=== PATIENT | male | born 1955 | race Two or more races ===

== ENCOUNTER 2024-06-24 10:11 | Emergency (ER) | payer OTHER ==
[~2024-06-24] VITALS: Ht 175.3 cm; Wt 80.7 kg
== END 2024-06-24 12:52 | disposition home or self-care (01) ==
LOC: ER 10:14
DX: S82.52XA Displaced fracture of medial malleolus of left tibia, initial encounter for closed fracture (principal); X50.9XXA Other and unspecified overexertion or strenuous movements or postures, initial encounter; Y93.89 Activity, other specified; Y92.413 State road as the place of occurrence of the external cause

== ENCOUNTER 2024-07-04 05:40 | Day surgery (SDC) | payer OTHER ==
[2024-07-03 12:34] VITALS: BP 124/77
[2024-07-03 13:06] LABS: INR 0.96; PARTIAL THROMBOPLASTIN TIME 28.2 SECONDS (22.0-34.0); PROTHROMBIN TIME 10.5 SECONDS (9.0-11.5)
[2024-07-04] MEDS ORDERED: ASA325 M1 PO (20:03)
[2024-07-04] MEDS ORDERED: PERCOCET 5-3251 EACH PO (20:03)
[2024-07-04] MEDS ORDERED: CEFADROXIL500 MG PO (20:03)
[2024-07-04] MEDS ORDERED: ISOPROPYL ALCOHOL 30 ML OUNCE TOP ONE (20:15)
[2024-07-04] MEDS ORDERED: CEFAZOLIN SODIUM 1,000 MG VIAL IV ONE (20:15)
== END 2024-07-05 02:15 | disposition home or self-care (01) ==
LOC: CIR.AMB 05:40
PROVIDERS: ATTEND Orthopaedic Surgery
DX: S82.842A Displaced bimalleolar fracture of left lower leg, initial encounter for closed fracture (principal); S93.422A Sprain of deltoid ligament of left ankle, initial encounter
CPT/HCPCS: 27814; 27610; 27695; L8699